=== PATIENT | male | born 1990 | race African-American/Black ===

== ENCOUNTER 2020-12-02 10:20 | Emergency (ER) | payer MEDICAID ==
[~2020-12-02] VITALS: Ht 182.9 cm; Wt 91.0 kg
[2020-12-02] MEDS ORDERED: ACETAMINOPHEN 325MG TABLET PO ONE (11:15)
[2020-12-02] MEDS ORDERED: IBUPROFEN 400MG TABLET PO ONE (11:15)
[2020-12-02 11:59] VITALS: BP 140/98
[2020-12-02 12:28] LABS: CLARITY URINE CLEAR (CLEAR); COLOR URINE YELLOW (YELLOW); KETONES URINE NEGATIVE (NEGATIVE); LEUKOCYTE ESTERASE URINE NEGATIVE (NEGATIVE); NITRITE URINE NEGATIVE (NEGATIVE); OCCULT BLOOD URINE NEGATIVE (NEGATIVE); PH URINE 7.5 (4.5-8.0); PROTEIN URINE NEGATIVE (NEGATIVE); SPECIFIC GRAVITY URINE 1.005 (1.005-1.030); UROBILINOGEN URINE 0.2 E.U./dL (0.2-1.0)
[2020-12-03] MEDS ORDERED: ACET-2708 MT (10:10)
== END 2020-12-02 12:59 | disposition left against medical advice (07) ==
LOC: ER 10:33
DX: N50.812 Left testicular pain (principal); Z98.890 Other specified postprocedural states
CPT/HCPCS: 76857; 76870; 81003; 93976; 99285

== ENCOUNTER 2020-12-02 15:49 | Emergency (ER) | payer MEDICAID, OTHER ==
[~2020-12-02] VITALS: Ht 177.8 cm; Wt 69.0 kg
[2020-12-02 17:33] VITALS: BP 127/87
[2020-12-03] MEDS ORDERED: ACET-2708 MT (10:10)
== END 2020-12-02 17:34 | disposition home or self-care (01) ==
LOC: ER 15:49
DX: N50.811 Right testicular pain (principal)
CPT/HCPCS: 99281

== ENCOUNTER 2020-12-03 09:47 | Emergency (ER) | payer OTHER ==
[~2020-12-03] VITALS: Ht 177.8 cm; Wt 64.0 kg
[2020-12-03 09:51] VITALS: BP 128/87
[2020-12-03] MEDS ORDERED: ACET-2708 MT (10:10)
[2020-12-03] MEDS ORDERED: IBUPROFEN 600MG TABLET PO ONE (10:15)
[2020-12-03] MEDS ORDERED: ACETAMINOPHEN 325MG TABLET PO ONE (10:15)
== END 2020-12-03 10:37 | disposition home or self-care (01) ==
LOC: ER 09:47
DX: G89.29 Other chronic pain (principal); R10.30 Lower abdominal pain, unspecified
CPT/HCPCS: 99282; 99283

== ENCOUNTER 2020-12-08 13:21 | Emergency (ER) | payer OTHER ==
[~2020-12-08 13:21] MED LIST: ACET-2708 MT
== END 2020-12-08 15:29 | disposition left against medical advice (07) ==
LOC: ER 13:21
DX: Z53.21 Procedure and treatment not carried out due to patient leaving prior to being seen by health care provider (principal)

== ENCOUNTER 2023-10-16 20:59 | Emergency (ER) | payer MEDICAID, OTHER ==
[~2023-10-16] VITALS: Ht 182.9 cm; Wt 72.0 kg
[2023-10-16 21:13] VITALS: O2SAT 100
[2023-10-16 23:22] LABS: CLARITY URINE CLEAR (CLEAR); COLOR URINE YELLOW (YELLOW); GLUCOSE URINE NEGATIVE (NEGATIVE); KETONES URINE NEGATIVE (NEGATIVE); LEUKOCYTE ESTERASE URINE NEGATIVE (NEGATIVE); NITRITE URINE NEGATIVE (NEGATIVE); OCCULT BLOOD URINE NEGATIVE (NEGATIVE); PH URINE 6.5 (4.5-8.0); PROTEIN URINE NEGATIVE (NEGATIVE); SPECIFIC GRAVITY URINE 1.009 (1.005-1.030); UROBILINOGEN URINE 0.2 E.U./dL (0.2-1.0)
[2023-10-16] MEDS: OLANZAPINE 5MG TABLET ODT PO ONE (23:30)
[2023-10-16 23:34] LABS: *AMPHETAMINES SCREEN URINE NEGATIVE (NEGATIVE); *BARBITURATES SCREEN URINE NEGATIVE (NEGATIVE); *BENZODIAZEPINES SCREEN URINE NEGATIVE (NEGATIVE); *COCAINE SCREEN URINE NEGATIVE (NEGATIVE); METHADONE URINE SCREEN NEGATIVE (NEGATIVE)
[2023-10-16 23:35] LABS: CANNABINOID URINE SCREEN PRESUMPTIVE POSITIVE (NEGATIVE); OPIATES URINE SCREEN NEGATIVE (NEGATIVE); PHENCYCLIDINE URINE SCREEN NEGATIVE (NEGATIVE)
[2023-10-16 23:39] LABS: BASOPHILS % 0.9 % (0.0-2.0); EOSINOPHILS % 2.9 % (0.0-5.0); HEMOGLOBIN. 13.4 g/dL (14.0-18.0); LYMPHOCYTES % 51.4 % (20.0-50.0); MEAN CORPUSCULAR HEMOGLOBIN 32.2 pg (28.0-32.0); MEAN CORPUSCULAR HGB CONC 33.6 g/dL (31.0-37.0); MEAN CORPUSCULAR VOLUME 96.1 fL (80.0-94.0); MEAN PLATELET VOLUME 8.3 fl (7.4-10.4); MONOCYTES % 9.2 % (2.0-8.0); NEUTROPHILS % 35.6 % (40.0-76.0); PLATELET 213 x1000/uL (130-400); RED BLOOD CELL COUNT 4.16 mill/uL (4.7-6.1); RED CELL DISTRIBUTION WIDTH 12.7 % (11.6-14.6); WHITE BLOOD COUNT 5.3 x1000/uL (4.5-11.0)
[2023-10-16 23:41] LABS: CHLORIDE 108 mEq/L (98-107); SODIUM 140 mEq/L (136-145)
[2023-10-16 23:42] LABS: CARBON DIOXIDE 30 mEq/L (21-32)
[2023-10-16 23:47] LABS: CREATININE 1.1 mg/dL (0.6-1.3); GLUCOSE 99 mg/dL (70-105); UREA NITROGEN BLOOD 6 mg/dL (9-23)
[2023-10-16 23:49] LABS: ACETAMINOPHEN < 2 ug/mL (10-30)
[2023-10-16 23:51] LABS: ETHANOL BLOOD < 10 mg/dL (<10)
[2023-10-17 20:24] VITALS: BP 121/83; PULSE 50; RESP 20; TEMP 98.7
[2023-10-17] MEDS ORDERED: OLANZAPINE 5MG TABLET ODT PO SCH (21:00)
== END 2023-10-17 20:45 ==
LOC: ER 20:59
DX: R45.851 Suicidal ideations (principal); F29 Unspecified psychosis not due to a substance or known physiological condition; F12.10 Cannabis abuse, uncomplicated; F41.9 Anxiety disorder, unspecified; Z20.822 Contact with and (suspected) exposure to COVID-19; F32.A Depression, unspecified
CPT/HCPCS: 36415; 80048; 80305; 80307; 80320; 80329; 81003; 85025; 87426; 99285; G0480

== ENCOUNTER 2024-04-24 12:12 | Emergency (ER) | payer MEDICAID ==
[~2024-04-24] VITALS: Ht 177.8 cm; Wt 84.0 kg
[2024-04-24 12:15] VITALS: O2SAT 99
[2024-04-24 13:17] LABS: CHLORIDE 104 mEq/L (98-107); POTASSIUM 4.8 mEq/L (3.5-5.1); SODIUM 138 mEq/L (136-145)
[2024-04-24 13:18] LABS: CARBON DIOXIDE 27 mEq/L (21-32)
[2024-04-24 13:19] LABS: CALCIUM 9.3 mg/dL (8.7-10.4)
[2024-04-24 13:21] LABS: BASOPHILS % 0.6 % (0.0-2.0); EOSINOPHILS % 1.9 % (0.0-5.0); HEMATOCRIT. 44.8 % (42.0-52.0); HEMOGLOBIN. 14.6 g/dL (14.0-18.0); LYMPHOCYTES % 49.4 % (20.0-50.0); MEAN CORPUSCULAR HEMOGLOBIN 31.7 pg (28.0-32.0); MEAN CORPUSCULAR HGB CONC 32.6 g/dL (31.0-37.0); MEAN CORPUSCULAR VOLUME 97.3 fL (80.0-94.0); MONOCYTES % 9.6 % (2.0-8.0); NEUTROPHILS % 38.5 % (40.0-76.0); RED CELL DISTRIBUTION WIDTH 13.6 % (11.6-14.6)
[2024-04-24 13:23] LABS: CREATININE 1.1 mg/dL (0.6-1.3)
[2024-04-24 13:24] LABS: GLUCOSE 91 mg/dL (70-105); UREA NITROGEN BLOOD 13 mg/dL (9-23)
[2024-04-24 13:25] LABS: ACETAMINOPHEN 3 ug/mL (10-30)
[2024-04-24 13:28] LABS: DIFFERENTIAL COMMENT 1
[2024-04-24 13:47] LABS: PLATELET 182 x1000/uL (130-400)
[2024-04-24 13:50] LABS: ETHANOL BLOOD < 10 mg/dL (<10)
[2024-04-24 14:26] LABS: CLARITY URINE CLEAR (CLEAR); COLOR URINE YELLOW (YELLOW); GLUCOSE URINE NEGATIVE (NEGATIVE); KETONES URINE NEGATIVE (NEGATIVE); LEUKOCYTE ESTERASE URINE NEGATIVE (NEGATIVE); NITRITE URINE NEGATIVE (NEGATIVE); OCCULT BLOOD URINE NEGATIVE (NEGATIVE); PH URINE 5.5 (4.5-8.0); PROTEIN URINE NEGATIVE (NEGATIVE); SPECIFIC GRAVITY URINE 1.026 (1.005-1.030)
[2024-04-24 14:51] LABS: *AMPHETAMINES SCREEN URINE NEGATIVE (NEGATIVE); *BARBITURATES SCREEN URINE NEGATIVE (NEGATIVE); *BENZODIAZEPINES SCREEN URINE NEGATIVE (NEGATIVE)
[2024-04-24 14:52] LABS: *COCAINE SCREEN URINE NEGATIVE (NEGATIVE); CANNABINOID URINE SCREEN PRESUMPTIVE POSITIVE (NEGATIVE); ECSTASY MDMA SCREEN URINE NEGATIVE (NEGATIVE); METHADONE URINE SCREEN NEGATIVE (NEGATIVE); OPIATES URINE SCREEN NEGATIVE (NEGATIVE); PHENCYCLIDINE URINE SCREEN NEGATIVE (NEGATIVE)
[2024-04-24 18:02] VITALS: O2SAT 99
[2024-04-24 22:00] VITALS: BP 126/65; PULSE 65; RESP 18; TEMP 36.7
== END 2024-04-25 03:37 ==
LOC: ER 12:12
DX: R45.851 Suicidal ideations (principal)
CPT/HCPCS: 36415; 80048; 80305; 80307; 80320; 80329; 81003; 85025; 99285; G0480